=== PATIENT | male | born 1970 | race Caucasian/White ===

== ENCOUNTER 2021-04-16 16:36 | Emergency (ER) | payer OTHER ==
[2021-04-16 16:43] VITALS: TEMP 99.6; BMI 37.4
[2021-04-16] MEDS ORDERED: SODIUM CHLORIDE 1,000 ML IV STA ×2 (17:18→18:25)
[2021-04-16 18:07] LABS: BASO % 1.2 % (0-2.0); EOS % 0.4 % (0-4.5); HEMATOCRIT 42.6 % (35.4-49); HEMOGLOBIN 14.8 GM/dl (11.7-16.9); LYMPH % 20.2 % (8-40); MCH 31.3 pg (25.7-33.7); MCHC 34.7 g/dl (32.0-35.9); MEAN CELL VOLUME 90.4 fl (80-96); MEAN PLT VOLUME 8.1 fl (7.5-11.1); MONO % 5.5 % (3.8-10.2); NEUT % 72.7 % (42.8-82.8); PLATELET COUNT 278 10^3/uL (134-434); RBC 4.71 M/mm3 (4.00-5.60); RDW 12.2 % (11.9-15.9)
[2021-04-16 18:17] LABS: ALBUMIN 4.5 g/dl (3.4-5.0); ALK PHOS 65 U/L (45-117); ANION GAP 12 MMOL/L (8-16); BILIRUBIN,TOTAL 0.6 mg/dl (0.2-1); CALCIUM 9.4 mg/dl (8.5-10); CHLORIDE 105 mmol/L (98-107); CO2 25 mmol/L (21-32); CREATININE 0.9 mg/dl (0.55-1.3); GLUCOSE,RANDOM 118 mg/dl (74-106); SGOT/AST 15 U/L (15-37); SGPT/ALT 20 U/L (13-61); SODIUM 142 mmol/L (136-145); TOT PROT 7.4 g/dl (6.4-8.2)
[2021-04-16 18:38] VITALS: BP 131/84
[2021-04-16] MEDS ORDERED: ALPRAZolam 1 MG TABLET PO PRN (19:36)
[2021-04-16 19:37] VITALS: PULSE 108
[2021-04-16] MEDS ORDERED: ALPRAZolam 0.25 MG TABLET ONE (19:40)
== END 2021-04-16 19:50 | disposition home or self-care (01) ==
LOC: FER 16:36
PROC: 3E0337Z Introduction of Electrolytic and Water Balance Substance into Peripheral Vein, Percutaneous Approach (ICD-10-PCS; principal; 2021-04-16)
PROC: 3E0337Z Introduction of Electrolytic and Water Balance Substance into Peripheral Vein, Percutaneous Approach (ICD-10-PCS; 2021-04-16)
DX: R00.2 Palpitations (principal)
CPT/HCPCS: 36415; 80053; 82550; 84443; 84484; 85025; 93005; 96360; 96361; 99284-25